=== PATIENT | female | born 1995 | race Caucasian/White ===

== ENCOUNTER 2016-12-25 17:04 | Emergency (ER) | payer BC, MEDICAID ==
[~2016-12-25] VITALS: Ht 160 cm; Wt 70.0 kg
[~2016-12-25 17:04] MED LIST: ROCEPHIN1 G1 IJ
[2016-12-25] MEDS ORDERED: PRENATABS RX PO (17:19)
[2016-12-25 17:30] LABS: HEMATOCRIT 35.2 % (37.0-47.0); HEMOGLOBIN 12.1 g/dl (12.0-16.0); IMMATURE GRANULOCYTES 0.4 % (0.0-1.0); MEAN CELL VOLUME 91.2 fL CALC (80.0-100.0); MEAN CORPUSCULAR HGB 31.3 pG CALC (26.0-32.0); MEAN CORPUSCULAR HGB CONC 34.4 g/L CALC (32.0-36.0); NEUT# 5.9 thou/uL (2.00-7.15); RED BLOOD COUNT 3.86 mill/uL (4.20-5.60); RED CELL DISTRI WIDTH 12.6 % (11.5-15.5)
[2016-12-25 17:41] LABS: ALKALINE PHOSPHATASE 49 u/l (38-126); ANION GAP 15 (6-22 (CALC)); BILIRUBIN, TOTAL 0.3 mg/dL (0.0-1.4); BUN 7 mg/dL (7-17); BUN/CREATININE RATIO 14 (12-20 (CALC)); CARBON DIOXIDE 18 mmol/l (22-30); CHLORIDE 109 mmol/l (95-108); CREATININE 0.5 mg/dL (0.5-1.0); GFR > 60 ML/MIN (>=60 (CALC)); GFR FOR AFR.AMER. > 60 ML/MIN (>=60 (CALC)); GLUCOSE 116 mg/dL (65-105); POTASSIUM 3.9 mmol/l (3.5-5.1); SGOT/AST 26 u/l (14-36); SGPT/ALT 43 u/l (9-52); SODIUM 137 mmol/l (137-146)
[2016-12-25 17:53] LABS: MYOGLOBIN 14 ng/mL (0 - 62)
[2016-12-25] MEDS ORDERED: IBUPROFEN600 MG PO (17:53)
[2016-12-25 18:11] VITALS: BP 130/76
== END 2016-12-25 18:21 | disposition home or self-care (01) | DRG 781 ==
LOC: ED 17:04
PROVIDERS: Emergency Medicine
DX: O26.892 Other specified pregnancy related conditions, second trimester (principal); F17.210 Nicotine dependence, cigarettes, uncomplicated; R07.89 Other chest pain; O99.512 Diseases of the respiratory system complicating pregnancy, second trimester; O99.332 Smoking (tobacco) complicating pregnancy, second trimester; J45.909 Unspecified asthma, uncomplicated; Z3A.19 19 weeks gestation of pregnancy

== ENCOUNTER 2017-05-28 07:29 | Inpatient (IN) | payer BC, MEDICAID ==
[~2017-05-28] VITALS: Ht 160 cm; Wt 73.5 kg
[2017-05-28] VITALS (14 sets, daily range): BP systolic 114–140; BP diastolic 73–92
[~2017-05-28 07:29] MED LIST changes: +IBUPROFEN600 MG PO; +PRENATABS RX PO
--- NOTE | 2017-05-28 07:35 | NUR ---
PATIENT AMBULATES TO UNIT FROM HOME IN STABLE CONDITION ACCOMPANIED BY HER S/O. WEIGHT AND HEIGHT OBTAINED. ESCORTED TO ROOM 256. CLEAN CATCH SPECIEMN OF URINE EXPLAINED AND OBTAINED. EFM COMMENCED. PATIENT HERE FOR INDUCTION OF LABOR FOR POSTDATES. DENIES PAIN, LEAKING OF AMNIOTIC FLUID OR VAGINAL BLEEDING. PATIENT IS A SMOKER AND ALSO HEP C POSITIVE. AWARE OF PLAN OF CARE DISCUSSED BY DR MONROY. ALL QUESTIONS ANSWERED.
--- NOTE | 2017-05-28 07:55 | NUR ---
DR MONROY AT BEDSIDE. SVE DONE CHARTED. PER MD TO HOLD OFF ON CYTOTEC ADMINISTRATION PATIENT APPEARS TO BE HAVING CONTRACTIONS. WILL CONTINUE TO MONITOR. NEW ORDERS RECEIVED.
[2017-05-28 08:10] LABS: URINE BILIRUBIN - DIPSTICK NEGATIVE (NEGATIVE); URINE COLOR YELLOW; URINE GLUCOSE - DIPSTICK NEGATIVE (NEGATIVE); URINE KETONE NEGATIVE (NEGATIVE); URINE LEUK ESTERASE NEGATIVE (NEGATIVE); URINE NITRITE - DIPSTICK NEGATIVE (Negative); URINE PROTEIN - DIPSTICK NEGATIVE (NEG-TRACE); URINE UROBILINOGEN - DIPSTICK 0.2 E.U./dL (0.2)
[2017-05-28 08:11] LABS: URINE CLARITY CLEAR
[2017-05-28 08:12] LABS: URINE BLOOD DIPSTICK NEGATIVE (NEGATIVE)
[2017-05-28 08:13] LABS: BARBITURATES NEGATIVE (NEGATIVE); COCAINE NEGATIVE (NEGATIVE); METHADONE NEGATIVE (NEGATIVE); OXCYCODONE NEGATIVE (NEGATIVE); TETRAHYDROCANNABIONOL NEGATIVE (NEGATIVE); TRICYLIC ANTIDEPRESSANTS NEGATIVE (NEGATIVE)
[2017-05-28 08:58] LABS: HEMOGLOBIN 12.3 g/dl (12.0-16.0); IMMATURE GRANULOCYTES 0.5 % (0.0-1.0); MEAN CELL VOLUME 91.8 fL CALC (80.0-100.0); MEAN CORPUSCULAR HGB 30.5 pG CALC (26.0-32.0); MEAN CORPUSCULAR HGB CONC 33.2 g/L CALC (32.0-36.0); NEUT# 5.73 thou/uL (2.00-7.15); RED BLOOD COUNT 4.03 mill/uL (4.20-5.60)
[2017-05-28 09:14] LABS: ALBUMIN 3.1 g/dL (3.2-5.0); ALKALINE PHOSPHATASE 215 u/l (38-126); ANION GAP 14 (6-22 (CALC)); BILIRUBIN, TOTAL 0.5 mg/dL (0.0-1.4); BUN 9 mg/dL (7-17); BUN/CREATININE RATIO 16 (12-20 (CALC)); CALCIUM 9.6 mg/dL (8.4-10.2); CARBON DIOXIDE 19 mmol/l (22-30); CHLORIDE 111 mmol/l (95-108); CREATININE 0.6 mg/dL (0.5-1.0); GFR > 60 ML/MIN (>=60 (CALC)); GFR FOR AFR.AMER. > 60 ML/MIN (>=60 (CALC)); GLUCOSE 102 mg/dL (65-105); POTASSIUM 4.8 mmol/l (3.5-5.1); SGOT/AST 32 u/l (14-36); SGPT/ALT 25 u/l (9-52); SODIUM 139 mmol/l (137-146); TOTAL PROTEIN 5.8 g/dL (6.3-8.2)
--- NOTE | 2017-05-28 10:25 | NUR ---
CYTOTEC 25MG GIVEN PO FOR INDUCTION OF LABOR, PER MDS ORDERS.
--- NOTE | 2017-05-28 12:02 | NUR ---
OFF MONITOR TO AMBULATE.
--- NOTE | 2017-05-28 13:20 | NUR ---
VOIDED. BACK TO BED. EFM RECOMMENCED. CONTINUES TO DENY PAIN. NO LEAKING OF AMNIOTIC FLUID OR VAGINAL BLEEDING AT THIS TIME. WILL CONTINUIE TO MONITOR.
--- NOTE | 2017-05-28 14:40 | NUR ---
PATIENT VOMITTED IN TOILET. UNABLE TO TELL IF CYTOTEC WAS VOMITTED. MD TO BE NOTIFIED. WILL CONTINUE TO MONITOR.
--- NOTE | 2017-05-28 16:00 | NUR ---
SVE CHARTED. PATIENT TO AMBULATE AND THEN RE-EVALUATE SVE TO DETERMINE PLAN OF CARE. PATIENT AWARE OF SAME.
--- NOTE | 2017-05-28 18:30 | NUR ---
TOOK AND TOLERATED DINNER. DENIES ANY INCREASE IN PAIN INTENSITY. OFF EFM TO AMBUATE IN HALLWAY WITH S/O. END OF SHIFT REPORT READY.
--- NOTE | 2017-05-28 19:00 | NUR ---
RECEIVED REPORT ON PATIENT FROM Franchesca PEACOCK RN. PT. UP AMBULATING IN ROOM AND COMFORTABLE AT THIS TIME. FETUS ACTIVE.
--- NOTE | 2017-05-28 19:56 | NUR ---
DR MONROY IN TO SEE PT. CERVICAL EXAM DONE AT 1940 BY HIM. MINIMAL CHANGE IN CERVIX PER MD.PLAN IS TO REPEAT PO CYTOTEC NOW THEN PT. TO SLEEP FOR THE NIGHT AND PITOCIN INDUCTION IN THE MORNING.
--- NOTE | 2017-05-28 22:52 | NUR ---
pt awake and resting in bed. ststed that she will request sleep med. if she needs it. mild irregular uterine contractions noted on intermittent uterine monitoring but pt. denied feeling them.fhr reactive.
--- NOTE | 2017-05-28 23:36 | NUR ---
SLEEP MED. REQUESTED BY PT. VISTARYL 50MG PO GIVEN ORDERED. PT. DENIES PAIN FROM MILD IRREGULAR CONTRACTIONS. MOVEMENT PALPATED.FHR REACTIVE.
[2017-05-29] VITALS (21 sets, daily range): BP systolic 113–143; BP diastolic 66–92
--- NOTE | 2017-05-29 06:12 | NUR ---
PO VISTERYL EFFEVTIVE. PT. SLEPT THROUGH THE NIGHT. VITAL SIGNS STABLE. FHR REACTIVE.
--- NOTE | 2017-05-29 06:50 | NUR ---
REPORT RECEIVED BY DEBBIE MORALES. PT IS RESTING IN BED AND S/O IN ROOM.
--- NOTE | 2017-05-29 07:40 | NUR ---
0657: SVE DONE FINGERTIP/80/-1. PT STATED THAT SHE DOES NOT FEEL PAIN AT THIS TIME.PT DENIES ANY NEEDS AT THIS TIME. 0725: PITOCIN STARTED AT 2 MILIUNITS/MIN PER DR. MONROY ORDERS. 0740: DR. MONROY AT BEDSIDE. SVE DONE BY FIGERTIP/80/-1. STATED WILL BE COMING LATER TO CHECK PT.
--- NOTE | 2017-05-29 08:30 | NUR ---
0757: MOVEMENT DIFFCULT TO TRACE FHR AT THIS TIME. EFM READJUSTED. 0830:PT OOB BED TO VOID.
--- NOTE | 2017-05-29 09:00 | NUR ---
FHR 125 WITH MODERATE VARIABILITY, ACCEL PRESENT , NO DECEL AND DIFFCULT TO TRACES CONTRACTIONS. PALPATED CONTRACTIONS AND ARE MILD AND RETURN TO SOFT. PT STATED THAT PAIN IS 2/10. PT DENIES ANY NEEDS AT THIS TIME. S/O IN ROOM.
--- NOTE | 2017-05-29 10:00 | NUR ---
PT IS IN RIGHT SIDE. ICE CHIPS GIVEN. PT DENIES ANY NEEDS AT THIS TIME.
--- NOTE | 2017-05-29 10:34 | NUR ---
1030:FHR 120 WITH MODERATE VARIABILITY, ACCEL PRESENT, NO DECEL, AND PALPATED CONTRACTIONS THEY ARE MILD. DIFFCULT TO TRACES CONTRACTIONS READJUSTED TOCO. PT OOB TO VOID. 1034: APPLIED A DIFFERENT EFM TO PT.
--- NOTE | 2017-05-29 12:00 | NUR ---
DR. MONROY AT BEDSIDE. SVE DONE BY MD CARDENAS/70/-3.
--- NOTE | 2017-05-29 12:01 | NUR ---
FHR IS 130 WITH MODERATE VARIABILITY, ACCEL PRESENT, NO DECELS AND TOCO TRACE X3 CONTRACTIONS. PT HAS BEEN MOVING IN BED MAKING IT DIFFCULT TO TRACE CONTRACTIONS. READJUSTED TOCO. PALPATED ABDOMEN AND CONTRACTIONS ARE MILD. PT STATED THAT PAIN IS LIKE CRAMPING IN ABDOMEN AND BACK. PAIN IS 3/10. PT DENIES ANY NEEDS AT THIS TIME.
--- NOTE | 2017-05-29 13:37 | NUR ---
PT IS SITTING IN BED. TOCO READJUST FOR TRACING OF CONTRACTIONS. PT DENIES ANY NEEDS AT THIS TIME.
--- NOTE | 2017-05-29 13:44 | NUR ---
PT IS ON RIGHT SIDE AND RESTING. NO S/S OF DISTRESS NOTED. PT DENIES ANY NEEDS AT THIS TIME.
--- NOTE | 2017-05-29 14:15 | NUR ---
PT IS MOVING IN BED. PT IS NOW IN LEFT SIDE. PT STATED THAT BABY IS MOVING. PT DENIES ANY NEEDS AT THIS TIME.
--- NOTE | 2017-05-29 15:30 | NUR ---
1516: PT OOB TO VOID. 1530:FHR 125 WITH MODERATE VARIABILITY, ACCEL PRESENT, NO DECEL, AND CONTRACTIONS 1-5 MIN. APART. PT DENIES ANY NEEDS AT THIS TIME.
--- NOTE | 2017-05-29 15:35 | NUR ---
DR. MONROY AT BEDSIDE. DISCUSSED PLAN OF CARE WITH PT AND PT VERBALIZED UNDERSTANDING. MD STATED HE WOULD BE BACK LATER TO CHECK ON PT.
--- NOTE | 2017-05-29 15:50 | NUR ---
PITOCIN INFUSION AT 8 MILIUNITS/MIN. DUE TO CONTRACTIONS GETTING TO CLOSE TOGETHER.
--- NOTE | 2017-05-29 16:36 | NUR ---
1630:FHR 100, BOLUS GIVEN AND TURN PT TO LEFT SIDE. 1636: MOVEMNT AND FHR 120.
--- NOTE | 2017-05-29 16:40 | NUR ---
PT IS RESTING IN BED. PT STATED THAT BACK IS HURTING AND HEATING PAD GIVEN. MOVEMENT MAKING IT DIFFCULT TO TRACES FHR. READJUST EFM. PT DENIES ANY OTHER NEEDS
--- NOTE | 2017-05-29 17:35 | NUR ---
DR. MONROY AT BEDSIDE. SVE DONE BY MD CARDENAS/80/-3. MD DISCUSSED PLAN OF CARE WITH PT AND PT VERBALIZED UNDERSTANDING. ORDERS RECEIVED.
--- NOTE | 2017-05-29 18:00 | NUR ---
FHR 120 WITH MODERATE VARIABILITY, ACCEL PRESENT, NO DECEL AND CONTRACTIONS ARE 2-3 MIN APART. MOVEMENT MAKING IT DIFFCULT TO TRACE FHR AND EFM ADJUSTED. PT IS SITTING IN BED EATING HER DINNER. PT DENIES ANY NEEDS AT THIS TIME. REPORT READY FOR ON COMING SHIFT.
--- NOTE | 2017-05-29 18:20 | NUR ---
1814: PT OOB TO VOID. 1819: PT AMBULATING IN HALLWAYS WITH S/O AT SIDE. PT DENIES ANY NEEDS AT THIS TIME.
--- NOTE | 2017-05-29 19:07 | NUR ---
REPORT RECEIVED FROM Keily ROMERO RN. PT. AMBULATING IN HALLWAY, HAVING NO DISCOMFORT AT THIS TIME. IV LR INFUSING.PT. WILL SHOWER AND IV PITOCIN IS SCHEDULED TO RESTART INDUCTION AT MIDNIGHT.
--- NOTE | 2017-05-29 21:30 | NUR ---
PT.RETURNED TO BED. CONTINUOUS MONITORING RESUMED. FHR 115 WITH ACCELERATIONS TO 160 BPM, MOD. VARIABILITYAND NO DECELERATIONS. UTERINE CONTRACTIONS MILD AND IRREGULAR. IV LR INFUSING AT 125/HR.
[2017-05-30] VITALS (29 sets, daily range): BP systolic 111–140; BP diastolic 62–96
--- NOTE | 2017-05-30 02:48 | NUR ---
PT ASLEEP. HAVING MILD IRREGULAR CONTRACTIONS WHICH ARE NOT FELT BY PT. V/S STABLE.IV PIT. AT MAXIMUM DOSAGE ORDERED BY .
--- NOTE | 2017-05-30 07:00 | NUR ---
SHIFT REPORT RECEIVED FROM SANJAY LEWIS. PATIENT IN BED ASLEEP IN LT TILT POSITION. EFM IN PROGRESS. PITOCIN INDUCTION IN PROGRESS. EFM IN PROGRESS. TO BE ASSESSED BY MD ON ROUND THIS MORNING.
--- NOTE | 2017-05-30 07:20 | NUR ---
DR MONROY AT BEDSIDE. WILL RETURN TO PERFORM SVE AFTER OTHER PROCEDURE. ASSISTED UP TO BATHROOM. DENIES PAIN. NO VAGINAL BLEEDING OF LEKAING OF AMNIOTIC FLUID.
--- NOTE | 2017-05-30 08:00 | NUR ---
BETWEEN 0730 AND 0800 1 CONTRACTION MONITORED LASTING 70SEC.
--- NOTE | 2017-05-30 08:30 | NUR ---
BETWEEN 0800 AND 0830 2 CONTRACTIONS MONITORED LASTING 110-130SEC.
--- NOTE | 2017-05-30 08:50 | NUR ---
SVE BY DR MONROY. FINDINGS DIFFICULT TO ASCERTAIN. NEW ORDERS RECEIVED FOR ULTRASOUND TO DETERMINE PLAN OF CARE.
--- NOTE | 2017-05-30 09:00 | NUR ---
BETWEEN 0830 AND 0900 1 CONTRACTION MONITORED LASTING 110 SEC.
--- NOTE | 2017-05-30 09:25 | NUR ---
patient sitting up in bed. s/o at bedside.
--- NOTE | 2017-05-30 11:25 | NUR ---
PATIENT OFF EFM TO AMBULATE IN HALLWAY. WILL TAKE SHOWER BEFORE NEXT DOSE OF CYTOTEC ID DUE AT 3. NO CONCERNS VOICED AT THIS TIME.
--- NOTE | 2017-05-30 11:40 | NUR ---
bedside ultrasound in progress. md also at bedside.
--- NOTE | 2017-05-30 11:50 | NUR ---
sve done by dr suero. same as charted. pitocin turned off per mds orders. patient given lunch tray. plan of care discussed with patient who agrees with same.
--- NOTE | 2017-05-30 14:48 | NUR ---
OUT OF SHOWER. EFM RECOMMENCED.
--- NOTE | 2017-05-30 15:52 | NUR ---
1540 PATIENT HAD WHAT APPEARED TO BE A PROLONGED NST. 1552 RN AT BEDSIDE. CONTRACTION PALPATED MILD. PATIENT RATES PAIN AT 2/10. PATIENT NEEDING TO VOID. DISCONNECTED FROM EFM TO VOID IN BATHROOM. WILL CONTINUE TOO MONITOR AND NOTIFY MD ROACH.
--- NOTE | 2017-05-30 16:22 | NUR ---
DR MONROY ON UNIT. NOTIFIED OF PATIENT HAVING RECURRENT PROLONGED CONTRACTIONS PALPATING MILD. PATIENT RATING SAME AT 06/29. NEXT DOSE OF CYTOTEC TO BE WITHHELD.
--- NOTE | 2017-05-30 18:57 | NUR ---
IN ROOM WITH S/O. TOLERATING CONTRACTIONS WELL. END OF SHIFT REPORT GIVEN TO SAUL LEWIS.
--- NOTE | 2017-05-30 19:00 | NUR ---
RECIEVED REPORT FROM Franchesca SANDHU RN. PT SITTING UP IN BED REPORTING PAIN 6/10 NOW WITH CTX EVERY 1.5-2 MINUTES.
--- NOTE | 2017-05-30 19:06 | NUR ---
PT UP TO BATHROOM PRIOR TO SVE.
--- NOTE | 2017-05-30 19:15 | NUR ---
DR MONROY IN TO SEE PATIENT AT THIS TIME. COMPLETES SVE AND DISCUSSES LABOR OPTIONS WITH PATIENT. DECISION MADE TO LABOR THROUGH THE NIGHT AND IF NO CHANGES ARE MADE BY MORNING, WILL PREPARE FOR CSECTION. OKS PATIENT TO HAVE CLEAR LIQUIDS.
--- NOTE | 2017-05-30 19:44 | NUR ---
PATIENT UP INDEPENDENTLY TO USE RESTROOM AT THIS TIME; DISCUSSED INITIATION OF BOLUS D/T CTX PATTERN; VERBALIZES UNDERSTANDING. DR MONROY NOTIFIED THIS RN INITIATES 500 CC BOLUS.
--- NOTE | 2017-05-30 20:18 | NUR ---
PATIENT UP TO BATHROOM
--- NOTE | 2017-05-30 22:05 | NUR ---
DR MONROY PRESENT TO NURSE'S STATION, UPDATED ON PATIENT STATUS AND REVIEWS STRIP.
[2017-05-31] VITALS (13 sets, daily range): BP systolic 115–139; BP diastolic 44–92
--- NOTE | 2017-05-31 00:30 | NUR ---
PATIENT REMAINS ON LEFT SIDE AT THIS TIME, TOCO ADJUSTED WITH CONTINUED DIFFICULTY TO MONITOR CTX ON MONITOR. CTX REMAIN EVERY 2-4 MINUTES WITH PALPATION.
--- NOTE | 2017-05-31 04:00 | NUR ---
PATIENT RESTING IN BED AT THIS TIME, IVF CONTINUES PER PHYSICIAN ORDER. PAIN HAS REPORTEDLY DECREASED THE NIGHT HAS PROGRESSED. PATIENT FEELING LESS AND LESS OF HER CONTRACTIONS. PREVIOUS ASSESSMENT UNCHANGED, WILL CONTINUE TO MONITOR.
--- NOTE | 2017-05-31 04:20 | NUR ---
SVE COMPLETED, PATIENT CERVIX REMAINS CLOSED POSTERIOR AND -2 STATION. PATIENT REQUESTING TO REMAIN SUPINE AT THIS TIME. TOCO AND EFM ADJUSTED.
--- NOTE | 2017-05-31 05:34 | NUR ---
PATIENT REPOSITIONS SELF TO LEFT SIDE LYING POSITION. TOCO ADJUSTED, BUT D/T POSITION CHANGE, ARTIFACT NOTED ON MONITOR.
--- NOTE | 2017-05-31 06:45 | NUR ---
DR MONROY PRESENT TO DEPARTMENT AT THIS TIME, UPDATED ON MOST RECENT SVE AND EFM THROUGHOUT THE NIGHT. IN TO SEE PATIENT, COMPLETES SVE WITH NO REPORTED CHANGE. DISCUSSES OPTIONS WITH PATIENT AND DECIDES OF CSECTION LATER TODAY. PATIENT UP TO BATHROOM.
--- NOTE | 2017-05-31 07:00 | NUR ---
end of shift report received from matheus jacobs. patient in restroom.
--- NOTE | 2017-05-31 07:05 | NUR ---
returns to bed. efm recommenced. patient denies pain, vaginal bleeding or leaking of amniotic fluid. npo maintained since midnight. aware of and agrees with plan of delivery. s/o at bedside for support. patient wants to shower before delivery. same facilitated.
--- NOTE | 2017-05-31 07:27 | NUR ---
finished shower. back on efm. pre and postop instructions reviewed with patient and s/o. all questions answered. both verbalsie understanding. ivb of lr commenced. shave preop done with clippers. preop meds commenced. see emar. he to be placed after anesthesia.
--- NOTE | 2017-05-31 08:15 | NUR ---
off efm. or nurse at bedside. getting ready to be taken to or by or staff for delivery. patient or s/o has no concerns at this time. fob dressed for or. see delivery room record.
--- NOTE | 2017-05-31 10:45 | NUR ---
PT BACK FROM RECOVERY VIA STRETCHER BY OR STAFF.
--- NOTE | 2017-05-31 11:00 | NUR ---
ASSESSMENT DONE AND VS CHARTED. PT UNABLE TO MOVE LEGS YET. PT ABLE TO WIGGLE TOES. PT STATED THAT SHE DOES NOT HAVE PAIN AT THIS TIME. CALL LIGHT IN REACH. FAMILY IN ROOM.
--- NOTE | 2017-05-31 12:08 | NUR ---
sitting up in bed holding . medicated for pain as requested. denies nausea at this time. encouraged to take sips of clear liquid as tolerated. family at bedside. no other concerns voiced.
--- NOTE | 2017-05-31 16:45 | NUR ---
patient assisted up to restroom. tolerated same without difficulty. he removed. pericare explained and done. return demonstration done. back to bed. instructed to call nurse for assistance before getting out of bed. patient verbalise understanding of same.
--- NOTE | 2017-05-31 18:22 | NUR ---
EXPERIENCING ITCHING MOSTLY IN THE FACE. NO RASH SEEN. MORE THAN LIKELY SIDE EFFECT OF DURAMORPH. WILL CALL NURSE WHEN SHE IS READY TO TAKE MEDICATION FOR ITCHING. TOOK AND TOLERATED FULL LIQUIDS.
--- NOTE | 2017-05-31 19:00 | NUR ---
REPORT RECIEVED FROM Franchesca SANDHU RN. PATIENT SITTING UP IN BED AT THIS TIME WITH STS AND FATHER OF BABY REMAINS AT BEDSIDE.
--- NOTE | 2017-05-31 21:30 | NUR ---
PATIENT SITTING UP INFANT AT THIS TIME; REPORTING PAIN MEDICATION EFFECTIVENESS AND DENIES ANY CURRENT NEEDS. IVF REMAINS PER PHYSICIAN ORDER. WILL CONTINUE TO MONITOR, CALL LIGHT WITHIN REACH.
[2017-06-01] VITALS: BP 116/53
[2017-06-01 03:20] VITALS: BP 117/74
--- NOTE | 2017-06-01 03:20 | NUR ---
PATIENT CONTINUES TO REST IN BED HOLDING AT THIS TIME. FATHER OF BABY REMAINS AT BEDSIDE SLEEPING; PT SUCCESSFUL CONTINUES WITH WITHOUT THE NEED OF STAFF ASSISTANCE. APPROPRIATELY ASKS FOR ASSISTANCE WHEN NECESSARY FOR BABY/SELF CARE. DENIES ANY NEEDS, IVF CONTINUES PER PHYSICIAN ORDER. REPORTING MILD 3/10 PAIN, REPORTING PAIN MED EFFECTIVENESS. FUNDUS REMAINS FIRM AT UU, WITH LIGHT LOCHIA RUBRA, PT UP TO BATHROOM WITH MINIMAL ASSISTANCE AND PERFORMS PERICARE INDEPENDENTLY. CALL LIGHT WITHIN REACH, WILL CONTINUE TO MONITOR.
--- NOTE | 2017-06-01 07:00 | NUR ---
REPORT RECEIVED, TO PT ROOM TO INTRODUCE TO PT. PT DENIES ANY NEEDS AT THIS TIME.
--- NOTE | 2017-06-01 07:40 | NUR ---
PT OOB TO VOID, AMBULATED, DID LINDSAY CARE W/O ASSISTANCE, BACK TO BED.
[2017-06-01 07:56] LABS: HEMATOCRIT 36.6 % (37.0-47.0); HEMOGLOBIN 12.4 g/dl (12.0-16.0); IMMATURE GRANULOCYTES 0.4 % (0.0-1.0); MEAN CELL VOLUME 91.7 fL CALC (80.0-100.0); MEAN CORPUSCULAR HGB 31.1 pG CALC (26.0-32.0); MEAN CORPUSCULAR HGB CONC 33.9 g/L CALC (32.0-36.0); NEUT# 7.67 thou/uL (2.00-7.15); RED BLOOD COUNT 3.99 mill/uL (4.20-5.60); RED CELL DISTRI WIDTH 13.1 % (11.5-15.5)
[2017-06-01 09:02] VITALS: BP 121/75
--- NOTE | 2017-06-01 09:15 | NUR ---
PT SITS IN BED HOLDING INFANT, POSITIVE BONDING.
--- NOTE | 2017-06-01 11:04 | NUR ---
PT WATCHING BR FEEDING VIDEO. DISCUSSED PAIN MANAGEMENT MEDS.
--- NOTE | 2017-06-01 16:30 | NUR ---
AMBULATES IN ROOM, MEDICATED FOR PAIN WITH LORTAB.
--- NOTE | 2017-06-01 16:51 | NUR ---
PT AMBULATES IN ROOM.
--- NOTE | 2017-06-01 17:45 | NUR ---
AMBULATES IN ROOM, TALKS ON CELL PHONE. WILL SHOWER LATER WHEN FOB ARRIVES.
--- NOTE | 2017-06-01 18:45 | NUR ---
REPORT TO Palak NARANJO RN IN PT ROOM TO INTRODUCE TO PT.
--- NOTE | 2017-06-01 18:52 | NUR ---
BEDSIDE REPORT RECEIVED FROM AMANDA SALMERON RN ON PT STATUS. PT IN ROOM TALKING ON PHONE AND . REQUESTS PAIN MEDICATION.
--- NOTE | 2017-06-01 19:35 | NUR ---
PT CRYING SITTING IN RECLINER. STATES UPSET BOYFRIEND IS NOT COMING TONIGHT TO VISIT. ENCOURAGED PT TO LET BABY STAY IN NURSERY SO SHE CAN SLEEP. STATES SHE WILL PROBABLY DO THAT.
--- NOTE | 2017-06-01 21:00 | NUR ---
PT SITTING IN RECLINER HOLDING . ASKS FOR FOOD. TURKEY SANDWICH AND PUDDING GIVEN PER PT REQUEST. STATES BOYFRIEND IS GOING TO COME TO HOSPITAL. PT APPEARS HAPPIER.
[2017-06-01 22:11] VITALS: BP 126/88
--- NOTE | 2017-06-01 22:35 | NUR ---
BOYFRIEND ARRIVES ON UNIT. IS STAYING THE NIGHT WITH PT AND BABY.
--- NOTE | 2017-06-02 00:38 | NUR ---
PT STATES SHE IS GETTING IN SHOWER. ENCOURAGED TO REMOVE ABDOMINAL DRESSING. VOICES UNDERSTANDING.
--- NOTE | 2017-06-02 02:15 | NUR ---
PT COMPLAINS OF INCISIONAL PAIN AND RATES IT 01/06. MEDICATED WITH LORTAB. SEE E-MAR FOR DETAILS. INCISION CLEAN, DRY AND INTACT WITH STERI STRIPS. NO SIGNS OF INFECTION NOTED ALONG INCISION. OFFERED WARM OR COLD PACK. PT REFUSES. RESTING IN BED ON RT SIDE. ENCOURAGED TO SLEEP.
--- NOTE | 2017-06-02 04:06 | NUR ---
PT SLEEPING SOUNDLY. NO SIGNS OF DISTRESS. BED IN LOW POSITION AND CALL LIGHT WITHIN REACH. SIGNIFICANT OTHER AT BEDSIDE.
--- NOTE | 2017-06-02 07:02 | NUR ---
PT REPORT GIVEN TO AMANDA SALMERON RN ON PT STATUS.
--- NOTE | 2017-06-02 07:37 | NUR ---
RESTING IN BED, HOLDING INFANT, PT MEDICATED FOR PAIN WITH LORTAB. PT ALLOWED TO REST. S/O IN ROOM.
--- NOTE | 2017-06-02 08:45 | NUR ---
PT ALLOWED TO REST.
--- NOTE | 2017-06-02 09:00 | NUR ---
DR MONROY IN TO SEE PT, PLAN FOR DISCHARGE TODAY.
[2017-06-02 10:00] VITALS: BP 136/84
[2017-06-02] MEDS ORDERED: IBUPROFEN600 MG PO (10:23)
[2017-06-02] MEDS ORDERED: LORTAB 7.57.5 MG PO (10:24)
--- NOTE | 2017-06-02 10:45 | NUR ---
DISCHARGE PLAN REVIEWED, PT ACABHINAVLEDGES UNDERSTANDING.
--- NOTE | 2017-06-02 11:50 | NUR ---
PT HAS BEEN OOB IN ROOM, STATES SHE HAS BEEN ABLE TO URINATE W/O PROBLEM, HAS BEEN DOING [facility].
--- NOTE | 2017-06-02 13:00 | NUR ---
PT PREPARES FOR DISCHARGE.
--- NOTE | 2017-06-02 14:05 | NUR ---
Discharge instructions given and reviewed. Pt. verbalizes understanding. Discharged in good condition [facility] accompanied by significant other, escorted by Palak Spangler RN.
== END 2017-06-02 14:05 | disposition home or self-care (01) | DRG 765 ==
LOC: OB 07:29
PROVIDERS: ADMIT Obstetrics & Gynecology; ATTEND Obstetrics & Gynecology
PROC: 3E033VJ Introduction of Other Hormone into Peripheral Vein, Percutaneous Approach (ICD-10-PCS; 2017-05-29)
PROC: 10D00Z1 Extraction of Products of Conception, Low, Open Approach (ICD-10-PCS; principal; 2017-05-31)
DX: O48.0 Post-term pregnancy (principal); O98.42 Viral hepatitis complicating childbirth; O61.0 Failed medical induction of labor; B19.20 Unspecified viral hepatitis C without hepatic coma; O99.334 Smoking (tobacco) complicating childbirth; F17.210 Nicotine dependence, cigarettes, uncomplicated; Z3A.41 41 weeks gestation of pregnancy; Z37.0 Single live birth
CPT/HCPCS: J2270; J2788